=== PATIENT | male | born 1980 | race Caucasian/White ===

== ENCOUNTER 2020-01-10 09:04 | Emergency (ER) | payer OTHER ==
[~2020-01-10] VITALS: Ht 182.9 cm; Wt 88.5 kg
[2020-01-10] MEDS ORDERED: NORCO 5-325 TA1 EAC2 PO ×2 (09:40→10:21)
[2020-01-10] MEDS ORDERED: FLEXERIL PO (09:40)
[2020-01-10] MEDS ORDERED: MOBIC15 MG PO (09:40)
[2020-01-10 10:25] VITALS: BP 116/78
== END 2020-01-10 10:26 | disposition home or self-care (01) ==
LOC: ER 09:04
DX: M54.5 Low back pain (principal); M54.6 Pain in thoracic spine; F17.210 Nicotine dependence, cigarettes, uncomplicated; X50.1XXA Overexertion from prolonged static or awkward postures, initial encounter; Y93.89 Activity, other specified; Y92.89 Other specified places as the place of occurrence of the external cause; Y99.8 Other external cause status